=== PATIENT | female | born 1965 | race Caucasian/White ===

== ENCOUNTER → 2016-10-20 | Outpatient (CLI) | payer BC, OTHER ==
[2016-10-20 09:23] LABS: CHLORIDE,CL 110 mmol/L (98-110); SODIUM,NA 141 mmol/L (136-146)
== END ==
LOC: MW.CHIM 08:07
PROVIDERS: ATTEND Internal Medicine
DX: R94.5 Abnormal results of liver function studies (principal); E66.9 Obesity, unspecified
CPT/HCPCS: 36415; 80053; 80061; 82947; 82950; 83036; 84439; 84443; 85025

== ENCOUNTER → 2017-01-04 | Outpatient (CLI) | payer BC, OTHER ==
--- NOTE | 2017-01-04 17:17 | MY ---
EXAMINATION: Bilateral digital mammography utilizing CAD. HISTORY: Screening exam. Comparison is made to previous studies dated 01/15/2016, 12/11/2014, 015, 11/13/2013. FINDINGS: Bilateral heterogeneously dense breast tissue bilaterally. No suspicious calcifications , masses or architectural distortions. No pathologic appearing lymph nodes, no abnormal skin thick ening or nipple inversion. CAD highlighted regions appear normal at this time. IMPRESSION: BI-RADS category I - negative mammogram. Continued screening according to ACR-ACS gu idelines suggested. THE FALSE-NEGATIVE RATE OF MAMMOGRAM IS APPROXIMATELY 10%. MANAGEMENT OF A PALPABLE ABNORMALITY MUST BE BASED UPON CLINICAL GROUNDS. SENSITIVITY FOR DETECTION OF ABNORMALITIES IN DENSE BREASTS IS LOW. NOTE: A letter will be sent to the patient regarding findings. [facility] -- BERNADETTE Shields [phone] - FAX [phone]
== END ==
LOC: MW.MAM 14:55
PROVIDERS: ATTEND Obstetrics & Gynecology
DX: Z12.31 Encounter for screening mammogram for malignant neoplasm of breast (principal)
CPT/HCPCS: G0202; G0202-26

== ENCOUNTER 2017-02-05 17:23 | Emergency (ER) | payer BC, OTHER ==
[2017-02-05 17:35] VITALS: BP 138/69
[2017-02-05] MEDS ORDERED: Lidocaine 1% 20 ML MDV INJECT ONE (17:50)
--- NOTE | 2017-02-05 17:57 | EDM.PDOC ---
ED HPI GENERAL MEDICAL PROBLEM - General Chief Complaint: Laceration Stated Complaint: CUT MIDDLE FINGER ON LEFT HAND Time Seen by Provider: 02/05/17 17:46 - History of Present Illness INITIAL COMMENTS - FREE TEXT/NARRATIVE: HISTORY AND PHYSICAL: History of present illness: The patient is a 51-year-old female who presents with complaints of a laceration to the radial aspect of her distal left middle finger that she sustained while she was cutting an onion at home. Patient is right-hand dominant and update her tetanus shot and denies any other systemic complaints. She states that earlier in the day she was feeling fine and had no complete the fever chills chest pain shortness of breath abdominal pain vomiting or diarrhea. The patient doesn't complain of much pain at the laceration site but she is concerned because he kept losing blood she thought it might need stitches. Review of systems: As per history of present illness and below otherwise all systems reviewed and negative. Past medical history: As per history of present illness and as reviewed below otherwise noncontributory. Surgical history: As per history of present illness and as reviewed below otherwise noncontributory. Social history: No reported history of drug or alcohol abuse. Family history: As per history of present illness and as reviewed below otherwise noncontributory. Physical exam: Gen.: Well-developed well-nourished female who is nontoxic and speaking clearly HEENT: Atraumatic, normocephalic, negative for conjunctival pallor or scleral icterus, mucous membranes moist, throat clear, neck supple, nontender, trachea midline. Lungs: Clear to auscultation, breath sounds equal bilaterally, chest nontender. Heart: S1S2, regular rate and rhythm no overt murmurs Genitourinary: Deferred. Rectal: Deferred. Extremities: Atraumatic with the exception of the radial aspect of the left middle digit at the DIP flexure where there is a 1 cm flap laceration to the subcutaneous tissue and minimal oozing of blood. Patient is able to flex at the profunda and extend at the DIP and there are no other injuries seen on the other digits of his hand or the hand itself. There is no swelling or palpable bony deformities in this area. The legs are, negative for cords or calf pain. Neurovascular unremarkable. Neuro: Awake, alert, oriented. Cranial nerves II through XII unremarkable. Cerebellum unremarkable. Motor and sensory unremarkable throughout. Exam nonfocal. Diagnostics: Therapeutics: Procedure note: After the area was soaked and irrigated the patient was informed of the procedure and the area was prepped and draped and 1% lidocaine without epinephrine was infused locally.The wound was explored and no foreign bodies were appreciated and the skin edges were reapproximated using a total number of# 3 sutures of 4-0 nylon in a simple interrupted fashion in order to tack the flap down. The patient had no complications with this procedure and she tolerated it well. The procedure was performed by Geovanni Chaidez NP. Bacitracin and a dressing were applied by nursing Impression: Left third digit finger laceration Definitive disposition and diagnosis as appropriate pending reevaluation and review of above. - Related Data Allergies Allergy/AdvReac Type Severity Reaction Status Date / Time No Known Allergies Allergy Verified 02/05/17 17:35 Home Meds: Home Meds buPROPion HCl [Wellbutrin Xl] 300 mg PO DAILY 02/05/17 [History] Past Medical History - Past Health History Medical/Surgical History: Denies Medical/Surgical History Psychiatric History: Reports: Depression - Infectious Disease History Infectious Disease History: Reports: Chicken Pox Social & Family History - Family History Family Medical History: Noncontributory - Tobacco Use Smoking Status *Q: Light Tobacco Smoker Years of Tobacco use: 30 Packs/Tins Daily: 0.1 - Alcohol Use Days Per Week of Alcohol Use: 1 - Recreational Drug Use Recreational Drug Use: No Drug Use in Last 12 Months: No ED ROS GENERAL - Review of Systems Review Of Systems: ROS reveals no pertinent complaints other than HPI. ED EXAM, SKIN/RASH Exam: See Below (See dictation) Course - Vital Signs Last Recorded V/S: Last Vital Signs Temp 36.6 C 02/05/17 17:32 Pulse 66 02/05/17 17:32 Resp 16 02/05/17 17:32 BP 138/69 02/05/17 17:32 Pulse Ox 96 02/05/17 17:32 - Orders/Labs/Meds Orders: Active Orders 24 hr Category Date Time Status Bacitracin [Bacitracin Oint 1 GM] Med 02/05/17 18:17 Once 1 dose TOP ONETIME ONE Meds: Medications Discontinued Medications Generic Name Dose Route Start Last Admin Trade Name Chintanq PRN Reason Stop Dose Admin Lidocaine HCl 20 ml 02/05/17 17:50 02/05/17 18:04 Xylocaine 1% INJECT 02/05/17 17:51 20 ml ONETIME ONE Administration Departure - Departure Time of Disposition: 18:10 Disposition: Home, Self-Care 01 Condition: Good Clinical Impression: Laceration of finger Qualifiers: Encounter type: initial encounter Finger: middle finger Damage to nail status: without damage Foreign body presence: without foreign body Laterality: left Qualified Code(s): S61.213A - Laceration without foreign body of left middle finger without damage to nail, initial encounter - Discharge Information Referrals: Deniz Nevarez MD [Primary Care Provider] - Forms: ED Department Discharge Additional Instructions: The following information is given to patients seen in the emergency department who are being discharged to home. This information is to outline your options for follow-up care. We provide all patients seen in our emergency department with a follow-up referral. The need for follow-up, as well as the timing and circumstances, are variable depending upon the specifics of your emergency department visit. If you don't have a primary care physician on staff, we will provide you with a referral. We always advise you to contact your personal physician following an emergency department visit to inform them of the circumstance of the visit and for follow-up with them and/or the need for any referrals to a consulting specialist. The emergency department will also refer you to a specialist when appropriate. This referral assures that you have the opportunity for followup care with a specialist. All of these measure are taken in an effort to provide you with optimal care, which includes your followup. Under all circumstances we always encourage you to contact your private physician who remains a resource for coordinating your care. When calling for followup care, please make the office aware that this follow-up is from your recent emergency room visit. If for any reason you are refused follow-up, please contact the [facility] emergency department at and ask to speak to the emergency department charge nurse. [facility] Primary care- Internal Medicine and Family [address] [address] Keep area clean and dry and use mild soap and water to cleanse the area packed dry. Apply bacitracin or Neosporin for the next 2 days and then stop the ointment. Please have sutures removed in 7 days either here in the emergency department with your primary care provider. Return here as needed and as discussed - My Orders Last 24 Hours: My Active Orders 02/05/17 18:17 Bacitracin [Bacitracin Oint 1 GM] 1 dose TOP ONETIME ONE - Assessment/Plan Last 24 Hours: My Active Orders 02/05/17 18:17 Bacitracin [Bacitracin Oint 1 GM] 1 dose TOP ONETIME ONE
[2017-02-05] MEDS ORDERED: Bacitracin Oint 1 GM U/D Packet TOP ONE (18:17)
== END 2017-02-05 18:24 | disposition home or self-care (01) ==
LOC: MW.ED 17:23
DX: S61.213A Laceration without foreign body of left middle finger without damage to nail, initial encounter (principal); F32.9 Major depressive disorder, single episode, unspecified; F17.210 Nicotine dependence, cigarettes, uncomplicated; Z79.899 Other long term (current) drug therapy; W26.0XXA Contact with knife, initial encounter; Y93.89 Activity, other specified; Y92.009 Unspecified place in unspecified non-institutional (private) residence as the place of occurrence of the external cause
CPT/HCPCS: 12001; 99282

== ENCOUNTER 2017-03-19 07:43 | Day surgery (SDC) | payer BC, OTHER ==
[~2017-03-19 07:43] MED LIST: Lactated Ringers 1,000 ML IV SCH
--- NOTE | 2017-03-19 08:31 | PCM.PREANE ---
Preanesthetic Assessment - Anesthesia/Transfusion/Family Hx Anesthesia History: Prior Anesthesia Without Reaction Other Type of Anesthesia Reaction Comment: DENIES PROBLEMS WITH ANESTHESIA Family History of Anesthesia Reaction: No Transfusion History: No Prior Transfusion(s) Intubation History: Unknown - Review of Systems General: No Symptoms Pulmonary: No Symptoms Cardiovascular: No Symptoms Gastrointestinal: No Symptoms, Other (h/o colon polyps, f/u colonoscopy) Neurological: No Symptoms Other: Reports: None - Physical Assessment Height: 1.7 m Weight: 102.965 kg ASA Class: 2 Mental Status: Alert & Oriented x3 Airway Class: Mallampati = 2 Dentition: Reports: Lesage(s) (multiple crowns upper front) Thyro-Mental Finger Breadths: 3 Mouth Opening Finger Breadths: 3 ROM/Head Extension: Full Lungs: Clear to Auscultation, Normal Respiratory Effort Cardiovascular: Regular Rate, Regular Rhythm - Allergies Allergies/Adverse Reactions: Allergies Allergy/AdvReac Type Severity Reaction Status Date / Time No Known Allergies Allergy Verified 03/17/17 13:36 - Blood Blood Available: No - Anesthesia Plan Pre-Op Medication Ordered: None - Acknowledgements Anesthesia Type Planned: MAC Pt an Appropriate Candidate for the Planned Anesthesia: Yes Alternatives and Risks of Anesthesia Discussed w Pt/Guardian: Yes Pt/Guardian Understands and Agrees with Anesthesia Plan: Yes PreAnesthesia Questionnaire - Past Health History Medical/Surgical History: Denies Medical/Surgical History HEENT History: Reports: None Cardiovascular History: Reports: None Respiratory History: Reports: None Gastrointestinal History: Reports: GERD, Other (See Below) (h/o sigmoid colon polyps ('14), h/o abnormal LFT's) Genitourinary History: Reports: None DIRECTOR OF HOTEL History: Reports: Other (See Below) (h/o overian cyst) Musculoskeletal History: Reports: None Neurological History: Reports: None Psychiatric History: Reports: Depression Endocrine/Metabolic History: Reports: Obesity/BMI 30+, Other (See Below) ( fibrocystic breast disease) Hematologic History: Reports: None Immunologic History: Reports: None Oncologic (Cancer) History: Reports: None Dermatologic History: Reports: None - Infectious Disease History Infectious Disease History: Reports: Chicken Pox - Past Surgical History Head Surgeries/Procedures: Reports: None HEENT Surgical History: Reports: None Cardiovascular Surgical History: Reports: None Respiratory Surgical History: Reports: None GI Surgical History: Reports: Colonoscopy, Other (See Below) Other GI Surgeries/Procedures: exploratory Laparotomy Female Surgical History: Reports: None Endocrine Surgical History: Reports: None Neurological Surgical History: Reports: None Musculoskeletal Surgical History: Reports: None Oncologic Surgical History: Reports: None Dermatological Surgical History: Reports: None - SUBSTANCE USE Smoking Status *Q: Former Smoker (quit 10/09) Tobacco Use Within Last Twelve Months: Cigarettes Days Per Week of Alcohol Use: 1 Recreational Drug Use History: No - HOME MEDS Home Medications: Home Meds buPROPion HCl [Wellbutrin Xl] 300 mg PO DAILY 02/05/17 [History] Loratadine 10 mg PO DAILY PRN 03/17/17 [History] - CURRENT (IN HOUSE) MEDS Current Meds: Current Medications Lactated Ringer's (Ringers, Lactated) 1,000 mls @ 125 mls/hr IV ASDIRECTED [facility] Last Admin: 03/19/17 08:10 Dose: 125 mls/hr
[2017-03-19] MEDS ORDERED: Midazolam 1 MG/ML 2 ML SDV ONE (08:43)
[2017-03-19] MEDS ORDERED: Propofol 200 MG/20 ML SDV ONE (08:43)
--- NOTE | 2017-03-19 09:55 | PCM.OPNOTE ---
- General Post-Op/Procedure Note Date of Surgery/Procedure: 03/19/17 Operative Procedure(s): Colonoscopy Pre Op Diagnosis: Personal history of colon polyps Post-Op Diagnosis: No evidence of neoplasia Anesthesia Technique: MAC (ASA II) Primary Surgeon: Alex Gomez Condition: Good Free Text/Narrative:: Dictation [id number] CPT CODE [id number]
[2017-03-19] MEDS ORDERED: Lactated Ringers 1,000 ML IV SCH (10:00)
--- NOTE | 2017-03-19 10:09 | OR ---
SURGEON: Alex Gomez M.D. DATE OF PROCEDURE: 03/19/2017 OPERATION PERFORMED: Colonoscopy. ANESTHESIA: MAC. ASA CLASSIFICATION: II. PREOPERATIVE DIAGNOSIS: Personal history of colon polyps. POSTOPERATIVE DIAGNOSIS: No evidence of neoplasia. DESCRIPTION OF PROCEDURE: The patient was taken to the endoscopy room and positioned on the endoscopy table in the left lateral decubitus position. Time-out was called for appropriate identification of the patient and procedure. Monitored anesthesia care was provided. The colonoscope was inserted into the rectum and advanced without difficulty to the cecum, where the colonoscope was retroflexed to visualize the ascending colon from below. The colonoscope was then straightened and slowly withdrawn. The cecum, ascending colon, hepatic flexure, transverse colon, splenic flexure, descending colon, sigmoid colon, and rectum were very well visualized. There were no tumors, polyps, diverticula, or angiodysplastic changes noted anywhere throughout the lower gastrointestinal tract. Once the colonoscope was withdrawn to the rectum, it was retroflexed to visualize the anal orifice from above. No tumors or polyps were seen and there were no acute hemorrhoidal changes. The colonoscope was then straightened, the rectum aspirated, and the colonoscope removed. The patient tolerated the procedure well and was taken to recovery room in stable condition. MARIA E / SPEEDY /[id number]
[2017-03-19 10:57] VITALS: BP 113/65
== END 2017-03-19 10:45 | disposition home or self-care (01) ==
LOC: MW.SDS 07:43
PROVIDERS: ATTEND Surgery
PROC: 0DJD8ZZ Inspection of Lower Intestinal Tract, Via Natural or Artificial Opening Endoscopic (ICD-10-PCS; principal; 2017-03-19)
DX: Z12.11 Encounter for screening for malignant neoplasm of colon (principal); Z86.010 Personal history of colon polyps; E66.9 Obesity, unspecified; F32.9 Major depressive disorder, single episode, unspecified; Z87.891 Personal history of nicotine dependence; Z68.35 Body mass index [BMI] 35.0-35.9, adult; Z79.899 Other long term (current) drug therapy; Z98.890 Other specified postprocedural states
CPT/HCPCS: 45378; J2250; J7120; 00810; J2704

== ENCOUNTER 2022-05-26 09:40 | Emergency (ER) | payer BC, OTHER ==
[2022-06-23 11:54] LABS: CHLORIDE,CL 104 mmol/L (98-107); POTASSIUM,K 4.4 mmol/L (3.5-5.1); SODIUM,NA 139 mmol/L (136-145)
[2022-06-23 11:55] LABS: BLOOD UREA NITROGEN,BUN 16 mg/dL (7.0-18.0); CARBON DIOXIDE,CO2 23.9 mmol/L (21.0-32.0); ESTIMATED GFR 65 mL/min (>60); GLUCOSE RANDOM 105 mg/dL (74-106)
== END 2022-05-26 11:35 | disposition home or self-care (01) ==
LOC: MW.ED 09:40
DX: K42.9 Umbilical hernia without obstruction or gangrene (principal)
CPT/HCPCS: 36415; 80053; 83605; 85027; 85610; 85730; 99283; U0002

== ENCOUNTER 2022-06-05 06:00 | Day surgery (SDC) | payer BC, OTHER ==
[2022-06-05] MEDS ORDERED: Propofol 200 MG/20 ML SDV ONE (07:58)
[2022-06-05] MEDS ORDERED: fentaNYL 100 MCG/2 ML SDV ONE (07:59)
[2022-06-05] MEDS ORDERED: Lactated Ringers 1,000 ML IV ONE (13:00)
== END 2022-06-05 14:07 ==
LOC: MW.SDS 06:00
PROVIDERS: ATTEND Surgery
DX: Z12.11 Encounter for screening for malignant neoplasm of colon (principal); K57.30 Diverticulosis of large intestine without perforation or abscess without bleeding; F32.A Depression, unspecified; K21.9 Gastro-esophageal reflux disease without esophagitis; E66.9 Obesity, unspecified; G47.33 Obstructive sleep apnea (adult) (pediatric); J30.9 Allergic rhinitis, unspecified; Z86.010 Personal history of colon polyps; Z79.899 Other long term (current) drug therapy; Z98.890 Other specified postprocedural states; Z87.891 Personal history of nicotine dependence; Z68.41 Body mass index [BMI] 40.0-44.9, adult
CPT/HCPCS: 45378; J2704; J3010; J7120; 00812